=== PATIENT | male | born 1930 | race Caucasian/White ===

== ENCOUNTER 2016-09-21 15:52 | Emergency (ER) | payer MEDICARE ==
[~2016-09-21] VITALS: Ht 182.9 cm; Wt 117.9 kg
[~2016-09-21 15:52] MED LIST: CALC200T23 PO; DUTA0.5C PO; FURO40TA4 PO; MAG30ORA2 PO; MAGN400O7 PO; OXYC5TAB PO; POTA10TA12 PO; TAMS0.4C2 PO; TAMS0.4C97 PO; WARF2TAB7 PO
[2016-09-21 16:16] LABS: BASO # 0.1 x10^3/uL (0.0-0.2); BASO % 1 % (0-3); EOS % 1 % (0-3); HEMATOCRIT 31.4 % (39.0-53.0); HEMOGLOBIN 10.4 g/dL (13.0-17.5); LYMPH # 0.9 x10^3/uL (1.0-4.8); LYMPH % 12 % (24-48); MEAN CORPUSCULAR HEMOGLOBIN 30 pg (25-35); MEAN CORPUSCULAR HGB CONC 33 g/dL (31-37); MEAN CORPUSCULAR VOLUME 91 fL (79-100); MONO % 9 % (0-9); NEUT % 76 % (31-73); PLATELET COUNT 275 x10^3/uL (140-400); RED BLOOD COUNT 3.45 x10^6/uL (4.30-5.70); RED CELL DISTRIBUTION WIDTH 17.4 % (11.5-14.5); WHITE BLOOD COUNT 7.6 x10^3/uL (4.0-11.0)
--- NOTE | 2016-09-21 16:16 | EKG ---
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
--- NOTE | 2016-09-21 16:25 | PHYS DOC ---
Past Medical History Past Medical History: High Cholesterol, Heart Disease, Hypertension, Vascular Disease, Other Additional Past Medical Histor: pt is poor historian Past Surgical History: Tonsillectomy, Other Additional Past Surgical Histo: hernia, venous stripping, cardiac stents, left ankle, poor historian, aaa Alcohol Use: Occasionally Drug Use: None Adult General Chief Complaint Chief Complaint: MECHANICAL FALL HPI HPI Patient is a 86 year old M who presents with a fall after go to the bathroom and complains of left side pain. Patient states he was getting up from the toilet and uses a cane to ambulate and states that his feet and cane gave way and he fell. Patient states he was not having any dizziness or chest pain or shortness of breath associated prior to the fall. Patient denies any fevers. Patient denies any nausea/vomiting/diarrhea. Patient states he was just discharged from the hospital yesterday for a AAA repair and is on Coumadin. Patient sustained abrasions to his left elbow and left knee and complains of left chest wall tenderness and left abdominal tenderness. Patient had no loss of consciousness. Patient states he may have hit his head but is unsure however has no overt signs of trauma to the head. Pertinent exam findings: Head was normocephalic atraumatic Positive tenderness to palpation left chest wall Positive tenderness palpation left upper and left lower abdomen Abrasion to the left elbow Abrasion to the left knee ED course: Patient was seen and evaluated upon arrival CBC, CMP, INR, CT scan of the head and C-spine without contrast, CT scan the chest abdomen pelvis with contrast were ordered 0: PT was reevaluated and updated on CT findings and INR. I commended patient hold his Coumadin for the next 2 days and follow-up with PCP to have it rechecked. Patient is stable to be discharged home. 1828: Discussed CC/HP/PMH with Dr. Sheppard and recommends discharge and will follow -up with him later this week to have his INR rechecked Pertinent results: 155: EKG shows normal sinus rhythm rate of 97 no STEMI INR is 5.2 Hemoglobin is 10.4 MDM: After reviewing the chart, CC/HPI/PMH, physical exam, [lab results], [ radiological results], I do not believe the patient has acute traumatic injury warranting further workup and/or admission at this time. Patient does have an elevated INR which she was made aware of and was told to hold his Coumadin for the next 2 days and to follow-up later this week to have his INR rechecked by his PCP. Patient's PCP was made aware of his stay in the emergency room and his elevated INR and Dr. Sheppard is comfortable with discharge him home. Patient is stable for discharge Additional verbal discharge instructions were provided to the patient and that if symptoms get worse or any new symptoms arise that are worrisome to the patient he is to return to the emergency room immediately Review of Systems Review of Systems GEN: Denies fevers, chills, sweats HEENT: Denies blurred vision, sore throat CV: Left chest wall tenderness RESP: Denies shortness of air, cough GI: Left abdominal pain NEURO: Denies confusion, dizziness MSK: Left elbow and left knee pain Allergies Allergies Allergies Coded Allergies Type Severity Reaction Last Updated Verified No Known Drug Allergies 08/30/16 No Physical Exam Physical Exam GEN.: No apparent distress. Alert and oriented. HEENT: Head is normocephalic, atraumatic NECK: Supple. LUNGS: CTAB. HEART: RRR, S1, S2 present. Peripheral pulses intact, left chest wall tenderness palpation ABDOMEN: Soft, left upper and left lower tenderness to palpation. Positive bowel sounds. EXTREMITIES: Without any cyanosis. NEUROLOGIC: Normal speech, normal tone PSYCHIATRIC: Normal affect, normal mood. SKIN: Abrasions to the left elbow and left knee, superficial Current Patient Data Vital Signs Vital Signs Date Time Temp Pulse Resp B/P (MAP) Pulse Ox O2 Delivery O2 Flow Rate FiO2 09/21/16 17:30 93 19 128/60 (82) 97 Room Air 09/21/16 15:52 98.0 98.0 Lab Values Laboratory Tests Test 09/21/16 15:58 White Blood Count 7.6 x10^3/uL (4.0-11.0) Red Blood Count 3.45 x10^6/uL (4.30-5.70) L Hemoglobin 10.4 g/dL (13.0-17.5) L Hematocrit 31.4 % (39.0-53.0) L Mean Corpuscular Volume 91 fL (79-100) Mean Corpuscular Hemoglobin 30 pg (25-35) Mean Corpuscular Hemoglobin Concent 33 g/dL (31-37) Red Cell Distribution Width 17.4 % (11.5-14.5) H Platelet Count 275 x10^3/uL (140-400) Neutrophils (%) (Auto) 76 % (31-73) H Lymphocytes (%) (Auto) 12 % (24-48) L Monocytes (%) (Auto) 9 % (0-9) Eosinophils (%) (Auto) 1 % (0-3) Basophils (%) (Auto) 1 % (0-3) Neutrophils # (Auto) 5.8 x10^3uL (1.8-7.7) Lymphocytes # (Auto) 0.9 x10^3/uL (1.0-4.8) L Monocytes # (Auto) 0.7 x10^3/uL (0.0-1.1) Eosinophils # (Auto) 0.1 x10^3/uL (0.0-0.7) Basophils # (Auto) 0.1 x10^3/uL (0.0-0.2) Platelet Estimate Adequate (ADEQUATE) Poikilocytosis Slight Anisocytosis Slight Tear Drop Cells Occ Ovalocytes Occ Schistocytes Occ Prothrombin Time 45.0 SEC (11.7-14.0) H Prothrombin Time INR 5.2 (0.8-1.1) *H Sodium Level 138 mmol/L (136-145) Potassium Level 4.4 mmol/L (3.5-5.1) Chloride Level 101 mmol/L (98-107) Carbon Dioxide Level 27 mmol/L (21-32) Anion Gap 10 (6-14) Blood Urea Nitrogen 16 mg/dL (8-26) Creatinine 1.2 mg/dL (0.7-1.3) Estimated GFR (Cockcroft-Gault) 57.4 Glucose Level 164 mg/dL (70-99) H Calcium Level 8.3 mg/dL (8.5-10.1) L Laboratory Tests 09/21/16 15:58 Laboratory Tests 09/21/16 15:58 EKG EKG EKG shows normal sinus rhythm rate of 97 no STEMI [] Radiology/Procedures Radiology/Procedures CT scan of the chest abdomen pelvis: IMPRESSION: 1. No acute chest, abdominal or pelvic abnormality is detected. 2. Pulmonary fibrosis. 3. Small peripancreatic fluid collections compatible with pancreatic cysts or pseudocysts. A cystic pancreatic neoplasm cannot be excluded. 4. Nonobstructing right intrarenal calculus. 5. Large stented abdominal aortic aneurysm. 6. Nonspecific prostatic enlargement. 7. Moderate sized fluid collections at both groin levels most likely represent postsurgical seromas. CT scan of the head and neck No intracranial process DJD [] Course & Med Decision Making Course & Med Decision Making Pertinent Labs and Imaging studies reviewed. (See chart for details) [] Dragon Disclaimer Dragon Disclaimer This electronic medical record was generated, in whole or in part, using a voice recognition dictation system. Departure Departure Impression: Primary Impression: Coagulopathy Additional Impressions: Skin abrasion Chest wall tenderness Abdominal tenderness in left flank Disposition: 01 HOME, SELF-CARE Condition: IMPROVED Referrals: PATRICA SHEPPARD MD (PCP) Patient Instructions: Coagulopathy Additional Instructions: Please follow up with her family doctor next one to 2 days and please have your INR rechecked and please hold her Coumadin for the next 2 days Problem Qualifiers SAM STEPHEN DO Sep 21, 2016 16:25
[2016-09-21 16:30] LABS: CALCIUM 8.3 mg/dL (8.5-10.1); CREATININE 1.2 mg/dL (0.7-1.3); GFR 57.4; POTASSIUM 4.4 mmol/L (3.5-5.1)
[2016-09-21 16:31] LABS: INR 5.2 (0.8-1.1)
[2016-09-21 16:42] LABS: ANISOCYTOSIS SLIGHT; OVALOCYTES OCC; PLT ESTIMATE ADEQUATE (ADEQUATE); POIKILOCYTOSIS SLIGHT; SCHISTOCYTES OCC; TEAR DROP CELLS OCC
--- NOTE | 2016-09-21 17:20 | RAD ---
CT of the head without contrast, 09/21/2016: History: Fall, injuries There is mild cerebral atrophy. The ventricles are mildly prominent on a compensatory basis. There is no shift of the midline structures. There is no evidence of acute intracranial hemorrhage or mass effect. There is minimal mucosal thickening in the maxillary and ethmoid sinuses IMPRESSION: No acute intracranial abnormality is detected. CT of the cervical spine without contrast, 09/21/2016: Noncontrast scans were obtained with multiplanar reconstructions produced. There is moderate disc space narrowing at several levels in the lower cervical spine. There are moderate scattered marginal spurs. There are moderate hypertrophic degenerative changes involving multiple facet joints bilaterally. The combination of findings is causing mild central spinal stenosis at several levels including C5-6. No acute fracture or dislocation is identified. IMPRESSION: 1. Moderate multilevel degenerative change. 2. No acute bony abnormality is detected. PQRS Compliance Statement: One or more of the following individualized dose reduction techniques were utilized for this examination: 1. Automated exposure control 2. Adjustment of the mA and/or kV according to patient size 3. Use of iterative reconstruction technique
--- NOTE | 2016-09-21 17:40 | RAD ---
CT of the chest, abdomen and pelvis without contrast, 09/21/2016: History: Fall, injuries Noncontrast scans were obtained as requested. There are reticular and streaky parenchymal opacities primarily in the periphery of both lungs suggesting fibrosis. Minimal underlying honeycombing is seen in some areas. A couple of calcified granulomata are present. No pulmonary mass, pleural fluid or pneumothorax is seen. There is calcific plaquing of the thoracic aorta without evidence of aneurysm. No mediastinal hemorrhage is evident. There is no evidence of hepatic or splenic laceration. The gallbladder is unremarkable. There is fatty infiltration of the pancreas. Two small well-defined fluid collections are seen adjacent to the pancreatic body and tail. The largest of these measures 4.5 cm. These have increased in size since a study from 09/06/2011. An additional smaller cyst is seen adjacent to the pancreatic head. There is mild bilateral renal cortical scarring. A small nonobstructing intrarenal calculus is present on the right. The kidneys show no evidence of obstruction. There is an 8.2 cm infrarenal abdominal aortic aneurysm. It contains a bifurcated aortoiliac stent graft. No previous CT abdominal study is currently available to assess stability of this aneurysm. No retroperitoneal hemorrhage is evident. There are unusual moderate-sized serpiginous fluid collections present at both groin levels. They lie adjacent to surgical clips which are probably related to the stent graft placement. These probably represent old seromas. Lymphoceles are less likely. The prostate gland is moderately enlarged. The bladder is unremarkable. The bowel loops are not dilated. No free fluid or free air is evident in the abdomen or pelvis. There are mixed lytic and sclerotic changes involving the left hemipelvis. 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 There are moderate scattered degenerative changes in the spine. IMPRESSION: 1. No acute chest, abdominal or pelvic abnormality is detected. 2. Pulmonary fibrosis. 3. Small peripancreatic fluid collections compatible with pancreatic cysts or pseudocysts. A cystic pancreatic neoplasm cannot be excluded. 4. Nonobstructing right intrarenal calculus. 5. Large stented abdominal aortic aneurysm. 6. Nonspecific prostatic enlargement. 7. Moderate sized fluid collections at both groin levels most likely represent postsurgical seromas. PQRS Compliance Statement: One or more of the following individualized dose reduction techniques were utilized for this examination: 1. Automated exposure control 2. Adjustment of the mA and/or kV according to patient size 3. Use of iterative reconstruction technique
[2016-09-21] MEDS ORDERED: ACETAMINOPHEN 500 MG TABLET PO ONE (19:00)
[2016-09-21 19:08] VITALS: BP 134/63
== END 2016-09-21 19:10 | disposition home or self-care (01) ==
LOC: ER 15:52
DX: D68.9 Coagulation defect, unspecified (principal); R07.89 Other chest pain; R10.9 Unspecified abdominal pain; S50.312A Abrasion of left elbow, initial encounter; S80.212A Abrasion, left knee, initial encounter; E78.00 Pure hypercholesterolemia, unspecified; I71.4 Abdominal aortic aneurysm, without rupture; I11.9 Hypertensive heart disease without heart failure; Z95.5 Presence of coronary angioplasty implant and graft; W19.XXXA Unspecified fall, initial encounter; Y93.89 Activity, other specified; Y99.8 Other external cause status; Y92.002 Bathroom of unspecified non-institutional (private) residence as the place of occurrence of the external cause
CPT/HCPCS: 36415; 70450; 71250; 72125; 74176; 80048; 85007; 85027; 85610; 93005; 99285-25